=== PATIENT | female | born 1985 | race Caucasian/White ===

== ENCOUNTER → 2017-08-17 15:31 | Outpatient (CLI) | payer OTHER, SELFPAY ==
[2017-08-17 17:10] LABS: Hematocrit 35.9 % (37-47); Hemoglobin 12.1 g/dl (12.0-15.0); Mean Corp Hgb Conc 33.7 g/gl (32-36); Mean Corpuscular Hgb 31.2 pg (27.0-32.0); Mean Corpuscular Volume 92.5 fL (81-99); Mean Platelet Vol. 10.3 fl (6.2-12.0); Platelet Count 240 K/mm3 (150-450); RBC Distribution Width CV 12.5 % (11.6-14.6); RBC Distribution Width SD 41.4 fl (35.1-43.9); Red Blood Count 3.88 M/mm3 (4.2-5.4)
[2017-08-17 17:14] LABS: Scan Indicated on CBC? Y/N NO
[2017-08-17 17:35] LABS: Free T3 2.1 pg/mL (2.18-3.98); Glucose Challenge Gest 1H 50g 121 mg/dL (70-140); T4 Free Direct 0.79 ng/dL (0.76-1.46); Thyroid Stim Hormone (TSH) 0.86 uIU/mL (0.358-3.74)
== END ==
PROVIDERS: Visit Provider Obstetrics & Gynecology
DX: Z34.83 Encounter for supervision of other normal pregnancy, third trimester (principal); E03.9 Hypothyroidism, unspecified
CPT/HCPCS: 36415; 82950; 84439; 84443; 84481; 85027; 86850

== ENCOUNTER → 2017-10-05 16:06 | Outpatient (CLI) | payer OTHER, SELFPAY ==
[2017-10-05 18:48] LABS: Group B Strep DNA By PCR Negative (Negative); Internal Control PASS; Probe Check PASS; Specimen Processing Control PASS
== END ==
PROVIDERS: Visit Provider Obstetrics & Gynecology
DX: Z36.85 Encounter for antenatal screening for Streptococcus B (principal)
CPT/HCPCS: 87081; 87653

== ENCOUNTER 2017-10-15 21:00 | Outpatient (CLI) | payer OTHER, SELFPAY ==
[2017-10-15 22:03] VITALS: BMI 35.8
[2017-10-15 22:30] LABS: ROM Internal Control Test YES-OK TO RESULT pt. (Internal QC); ROM Patient Test Negative (Negative)
[2017-10-15 23:04] VITALS: BP 116/69; PULSE 78; RESP 18; TEMP 36.7; O2SAT 98
--- NOTE | 2017-10-16 08:32 | OB.TRI.NOTE ---
History of Present Illness Date of Service: 10/15/17 Was patient seen by the physician?: Yes Reason For Visit: R/O LABOR Date of Service: 10/15/17 Final DIMITRIS: 11/05/17 Gestational age: 37 Weeks and 0 Days History of Present Illness: 32 yo AB5 female at 37 + wk presents for evaluation with ? SROM and no UCs felt. BP sl high initially at 132/91 Some UCs earlier in day. Concerned and just wanted to be checked to be sure all OK Home Medications Medication Instructions Recorded Aspirin 81 mg PO DAILY 10/15/17 B12/Levomefolate Calcium/B-6 1 each PO DAILY 10/15/17 [Folbic Rf Tablet] Levothyroxine Sodium [Synthroid] 25 mcg PO DAILY 10/15/17 Vit No.87/Iron/FA/Dha 1 each PO DAILY 10/15/17 [Prenate Mini Softgel] Allergies No Known Allergies Allergy (Verified 10/15/17 22:05) Physical Exam Vitals: Vital Signs Temp Pulse Resp BP Pulse Ox 98.0 F 78 18 116/69 98 10/15/17 23:04 10/15/17 23:04 10/15/17 23:04 10/15/17 23:04 10/15/17 23:04 General: Alert, Oriented x3, Cooperative, No apparent distress Abdomen: Soft, Gravid Cervix Dilation (cm): 0.5 - ROM NEGATIVE Station: -2 Effacement (%): 0 NST - FHR Rate Baby A Baseline: 120-130s accels to 170s Variability:: Moderate Accelerations:: 15 x 15 Decelerations:: None NST Reactive:: Yes, Appropriate for gestational age FHR Category:: Category I Uterine Activity:: Rare UC noted Impression/Plan 37 wk False labor. ROM neg no reg UCs and cervix unfavorable. NST reactive Home. F/U in ofc as planned Return to hospital if inc s/sx of labor.
== END 2017-10-15 23:00 | disposition home or self-care (01) ==
LOC: WPOUT 21:12 → WP 21:13
PROVIDERS: Family Provider Family Medicine; PCP Family Medicine; Visit Provider Obstetrics & Gynecology
DX: O47.1 False labor at or after 37 completed weeks of gestation (principal); Z3A.37 37 weeks gestation of pregnancy
CPT/HCPCS: 59025; 59050; 84112; 99218; G0378

== ENCOUNTER → 2017-10-25 17:21 | Outpatient (CLI) | payer OTHER, SELFPAY ==
[2017-10-25 18:03] LABS: Hematocrit 35.4 % (37-47); Hemoglobin 12.2 g/dl (12.0-15.0); Mean Corp Hgb Conc 34.5 g/gl (32-36); Mean Corpuscular Hgb 31.5 pg (27.0-32.0); Mean Corpuscular Volume 91.5 fL (81-99); Mean Platelet Vol. 10.4 fl (6.2-12.0); Platelet Count 223 K/mm3 (150-450); RBC Distribution Width CV 12.6 % (11.6-14.6); Red Blood Count 3.87 M/mm3 (4.2-5.4); Scan Indicated on CBC? Y/N NO; White Blood Count 9.7 K/mm3 (4.4-11.0)
[2017-10-25 18:11] LABS: International Normalized Ratio 0.9; Partial Thromboplast Time 28.4 Seconds (24.1-36.2); Prothrombin Time (Protime)PT. 12.6 SECONDS (11.7-14.9)
[2017-10-25 18:17] LABS: AST(SGOT) 17 U/L (15-37); Alanine Aminotransfer ALT/SGPT 14 U/L (13-56); Albumin, Serum 2.9 g/dL (3.2-5.0); Alkaline Phosphatase 155 U/L (45-117); Anion Gap 10 (5-15); BUN 10 mg/dL (7-18); BUN/Creat Ratio 19.1 RATIO (10-20); Bilirubin, Direct 0.07 mg/dL (0.00-0.30); Calcium,Total 8.8 mg/dL (8.5-10.1); Chloride 105 mmol/L (98-107); Creatinine, Serum 0.52 mg/dL (0.55-1.02); EST Glomerular Filtration Rate 142 mL/min (>60); Est Glom Filt Rate - Afr Amer 172 mL/min (>60); Globulin 4.6 g/dL (2.2-4.2); Glucose 76 mg/dL (74-106); Potassium 3.9 mmol/L (3.5-5.1); Protein, Total 7.5 g/dL (6.4-8.2); Sodium Level 137 mmol/L (136-145); Uric Acid 3.9 mg/dL (2.6-6.0)
[2017-10-25 19:03] LABS: Microalbumin,Random Urine < 5.0 mg/L (NO RANGE EST.)
== END ==
PROVIDERS: Family Provider Family Medicine; PCP Family Medicine; Visit Provider Obstetrics & Gynecology
DX: O13.9 Gestational [pregnancy-induced] hypertension without significant proteinuria, unspecified trimester (principal); Z3A.00 Weeks of gestation of pregnancy not specified
CPT/HCPCS: 36415; 80048; 80076; 82043; 82570; 84550; 85027; 85610; 85730

== ENCOUNTER → 2017-10-27 14:00 | Outpatient (CLI) | payer OTHER, SELFPAY ==
[2017-10-27 14:24] LABS: 24 Hour Urine Protein 226.3 mg/24HR (<150 MG/24HR); 24HR. UA Prot. Total Volume 3100 mL; Urine Protein (24 Hour) 7.3 mg/dL (<11.9)
== END ==
PROVIDERS: Visit Provider Obstetrics & Gynecology
DX: O13.9 Gestational [pregnancy-induced] hypertension without significant proteinuria, unspecified trimester (principal); Z3A.00 Weeks of gestation of pregnancy not specified
CPT/HCPCS: 84156

== ENCOUNTER 2017-11-03 07:02 | Inpatient (IN) | payer OTHER, SELFPAY ==
[2017-11-03 07:30] VITALS: BMI 35.6
[2017-11-03] MEDS: Lactated Ringers 1,000 ML 50 ML IV ×2 (07:45→12:40)
[2017-11-03 08:03] LABS: Hematocrit 36.4 % (37-47); Hemoglobin 12.3 g/dl (12.0-15.0); Mean Corp Hgb Conc 33.8 g/gl (32-36); Mean Corpuscular Hgb 30.5 pg (27.0-32.0); Mean Corpuscular Volume 90.3 fL (81-99); Mean Platelet Vol. 10.4 fl (6.2-12.0); Platelet Count 210 K/mm3 (150-450); RBC Distribution Width CV 12.8 % (11.6-14.6); RBC Distribution Width SD 41.8 fl (35.1-43.9); Red Blood Count 4.03 M/mm3 (4.2-5.4); White Blood Count 8.9 K/mm3 (4.4-11.0)
[2017-11-03 08:04] LABS: Scan Indicated on CBC? Y/N NO
[2017-11-03] MEDS: Oxytocin 30 units/NS 500 ml 30 UNITS/500 ML IV.SOLN IV (09:09)
--- NOTE | 2017-11-03 12:31 | PCM.PN.OB ---
Subjective: Very uncomfortable with contractions --mostly back pains Objective: Afeb VSS FHR tracing Cat 1 - Physical Exam General: Alert, Oriented x3, Cooperative, No apparent distress Lungs: Clear to auscultation, Normal air movement Cardiovascular: Regular rate, Regular Rhythm Abdomen: Gravid, Appropriate for Gestational Age Extremities: No edema Skin: No rashes Neurological: Neuro grossly intact Psych/Mental Status: Normal Affect Comment: CE 2-3 cm/80%/-2 Weight: 200 lb 13.458 oz Body Mass Index (BMI) 35.6 Intake and Output for Last 24 Hours 11/01/17 11/02/17 11/03/17 23:59 23:59 23:59 Output Total 100 / 100 Balance -100 / -100 Laboratory Tests Past 24 Hrs 11/03/17 11/03/17 04:45 04:45 WBC 8.9 RBC 4.03 L Hgb 12.3 Hct 36.4 L MCV 90.3 MCH 30.5 MCHC 33.8 RDW 12.8 RDW Differential 41.8 Plt Count 210 MPV 10.4 Blood Type O NEGATIVE Antibody Screen NEGATIVE Medical Necessity - Tobacco Use Smoking Status: Never smoker Assessment/Plan Pitocin at 6 mu/min. AROM performed with clear fluid noted. IUPC placed. Epidural when anesthesia available.
[2017-11-03] MEDS: fentaNYL-bupivacaine (epidural) 100 ML BAG EPIDURAL (13:12)
--- NOTE | 2017-11-03 15:05 | PCM.PN.OB ---
Subjective: Much more comfortable with epidural in place. Objective: Afeb VSS FHR tracing Cat 1. - Physical Exam General: Alert, Oriented x3, Cooperative, No apparent distress Lungs: Clear to auscultation, Normal air movement Cardiovascular: Regular rate, Regular Rhythm Abdomen: Soft, Non Tender, Non-Distended, Gravid, Appropriate for Gestational Age Extremities: No edema Skin: No rashes Comment: CE 6/80/-2 Weight: 200 lb 13.458 oz Body Mass Index (BMI) 35.6 Intake and Output for Last 24 Hours 11/01/17 11/02/17 11/03/17 23:59 23:59 23:59 Output Total 100 / 100 Balance -100 / -100 Laboratory Tests Past 24 Hrs 11/03/17 11/03/17 04:45 04:45 WBC 8.9 RBC 4.03 L Hgb 12.3 Hct 36.4 L MCV 90.3 MCH 30.5 MCHC 33.8 RDW 12.8 RDW Differential 41.8 Plt Count 210 MPV 10.4 Blood Type O NEGATIVE Antibody Screen NEGATIVE Medical Necessity - Tobacco Use Smoking Status: Never smoker Assessment/Plan Progressing in labor. Adequate contractions by IUPC pressure measurements.
[2017-11-03] MEDS: Acetaminophen 325 MG Tablet PO (15:07)
[2017-11-03] MEDS: Oxytocin 30 units/NS 500 ml 30 UNITS/500 ML IV.SOLN 334 UNITS IV (17:17)
[2017-11-03] MEDS: Oxytocin 30 units/NS 500 ml 30 UNITS/500 ML IV.SOLN 167 UNITS IV (17:37)
--- NOTE | 2017-11-03 17:38 | PCM.OB.VAG ---
Vaginal Delivery Maternal Presentation: Medically Indicated Induction presented at 39w5d ega for induction of labor secondary to induced hypertension Method of Induction: Pitocin Medical Reason for Induction: Gestational Hypertension Amniotic Membrane Rupture Type: Artificial Rupture of Membrane time: 1215 Amniotic Fluid Description: Clear Final DIMITRIS: 11/05/17 Final DIMITRIS Source: US <20 weeks Gestational age: 39 Weeks and 5 Days Date of Procedure: 11/03/17 Pre-Operative Diagnosis: Labor Post-Operative Diagnosis: Same Surgery/ Procedure Performed: Spontaneous Vaginal Delivery Anesthesiologist: Shaggy Chambers Type of Anesthesia: Epidural Description of Procedure: Octavia presented at 2 cm dilated. Pitocin was started and over 8 hours progressed to FD. She then pushed for about an hour to deliver a live female without complication. After delivery the nose and mouth were suctioned and the baby dried and stimulated. There was an active jarrod within the first minute of life. Delayed cord clamping was employed. The cord was then clamped and cut. The baby was placed on mom's chest for skin to skin. Cord blood were collected secondary to mom's rh negative status. The placenta was delivered spontaneously intact with an eccentrically located 3 vessel cord. The uterus contracted well after delivery of the placenta. Inspection revealed an intact cervix and upper vagina. A small periurethral tear was repaired with 3-0 Rapide suture. A small posterior vagina abrasion was repaired with the same suture. Presentation: Vertex Placental Delivery Description: Spontaneous Placenta Disposition: [facility] Percentage of Placenta Abruption: 0 Cord Vessel Description: 3 Vessels Cord Entanglement: None Drain: Garcia to straight drain Estimated Blood Loss: 300cc A gender: Female (1 minute): 8 (5 minute): 9 Episiotomy Description: None Laceration: Periurethral Extnsion/lac, 1st degree Medications given after delivery: IV Pitocin Complications: None
--- NOTE | 2017-11-03 17:49 | DCINST_ITS ---
Discharge Diet: No Restrictions Discharge Activity: Return to Normal Activity, May Drive, May Shower Return to work on:: 01/03/18 May shower in (days): 0 May resume sexual activity in: 4-6 weeks Call your doctor if your incision/area has: Sudden Increased Bleeding, Increased Pain/ Swelling, Foul Smelling Discharge Call your doctor if you observe: Fever of 101 or Higher, Inability to urinate, Inability to have a bowel movement, Using more than one pad per hour, Shortness of breath, Chest pain, Calf discomfort, Uncontrolled pain Cleanse incision/area with: Soap & Water Additional Instructions: If you experience any of the following, contact your healthcare provider. * Bleeding that soaks a pad every hour for 2 hours * Fever 100.4 or higher * Unrelieved incision or abdominal pain * Swelling, redness, discharge or bleeding from your incision or episiotomy site * Your incision begins to separate * Problems urinating (including inability to urinate or burning while urinating) . * Visual changes * Severe headache * Flu-like symptoms * Pain or redness in one of both of your breasts * Pain, warmth, tenderness or swelling in your legs, especially the calf area * Frequent nausea and vomiting * Symptoms of depression or anxiety If you experience any of the following, call 911 or go to the nearest Emergency Room. * Chest pain * Problems breathing * Seizure activity * Partial or complete paralysis of a body part, slurred speech, weakness or drooping of the face, or a sudden inability to walk or hold your balance Allergies/Adverse Reactions: Allergies No Known Allergies Allergy (Verified 11/03/17 07:32) reactions to nickel and bancaids Medications to take at Discharge B12/Levomefolate Calcium/B-6 [Folbic Rf Tablet] 1 each PO DAILY 10/15/17 Levothyroxine Sodium [Synthroid] 25 mcg PO DAILY 10/15/17 Vit No.87/Iron/FA/Dha [Prenate Mini Softgel] 1 each PO DAILY 10/15/17 Ibuprofen [Ibu] 600 mg PO Q6H PRN PRN #30 tab 11/03/17 The following prescriptions were given: Ibuprofen [Ibu] 600 mg PO Q6H PRN PRN #30 tab PRN Reason: pain or cramping Please Follow Up With: Michoacano Collier MD When: 6 weeks Primary Care Physician: Mich Gandhi [Primary Care Provider] - Proposed Discharge Date: 11/05/17
[2017-11-03 19:38] VITALS: BP 110/65; PULSE 102; RESP 16; TEMP 37.5
--- NOTE | 2017-11-03 20:31 | NURSING ---
1937-post vaginal abrasion
--- NOTE | 2017-11-03 20:34 | NURSING ---
1938-pt remains a little numb still from epidural, will remove catheter when feeling completely back .
[2017-11-04] MEDS: Ibuprofen 600 MG Tablet PO ×4 (00:24→21:46)
[2017-11-04 03:00] VITALS: BP 133/81; PULSE 89; RESP 20; TEMP 37.3
[2017-11-04] MEDS: Levothyroxine 25 MCG TABLET PO (06:42)
[2017-11-04 07:02] LABS: Hematocrit 34.4 % (37-47); Hemoglobin 11.6 g/dl (12.0-15.0); Mean Corp Hgb Conc 33.7 g/gl (32-36); Mean Corpuscular Hgb 30.7 pg (27.0-32.0); Mean Platelet Vol. 10.2 fl (6.2-12.0); Platelet Count 185 K/mm3 (150-450); RBC Distribution Width CV 12.9 % (11.6-14.6); RBC Distribution Width SD 42.5 fl (35.1-43.9); Red Blood Count 3.78 M/mm3 (4.2-5.4); White Blood Count 14.7 K/mm3 (4.4-11.0)
[2017-11-04 07:33] LABS: Scan Indicated on CBC? Y/N NO
[2017-11-04 08:00] VITALS: BP 138/96; PULSE 87; RESP 16; TEMP 37.1
--- NOTE | 2017-11-04 08:10 | PCM.PN.OB ---
Subjective: Doing well on PP day#1. No specific complaints. Bleeding appropriate. Breast feeding. Objective: Afeb VSS Hgb stable - Physical Exam General: Alert, Oriented x3, Cooperative, No apparent distress Lungs: Clear to auscultation, Normal air movement Cardiovascular: Regular rate, Regular Rhythm Abdomen: Soft, Non Tender, Non-Distended, - - Fundus firm nontender Extremities: No edema Skin: No rashes Neurological: Neuro grossly intact Psych/Mental Status: Normal Affect Comment: Lochia light Vital Signs Temp Pulse Resp BP 99.1 F 89 20 H 133/81 H 11/04/17 03:00 11/04/17 03:00 11/04/17 03:00 11/04/17 03:00 Weight: 200 lb 13.458 oz Body Mass Index (BMI) 35.6 Intake and Output for Last 24 Hours 11/02/17 11/03/17 11/04/17 23:59 23:59 23:59 Intake Total 2664 / 2664 400 / 400 Output Total 1250 / 1250 350 / 350 Balance 1414 / 1414 50 / 50 Laboratory Tests Past 24 Hrs 11/03/17 11/03/17 11/04/17 04:45 21:30 06:45 WBC 14.7 H RBC 3.78 L Hgb 11.6 L Hct 34.4 L MCV 91.0 MCH 30.7 MCHC 33.7 RDW 12.9 RDW Differential 42.5 Plt Count 185 MPV 10.2 Blood Type O NEGATIVE Antibody Screen NEGATIVE Screen NEGATIVE Baby's Blood Type A POSITIVE Baby's SERGIO POSITIVE Medical Necessity - Tobacco Use Smoking Status: Never smoker Assessment/Plan Doing well on PP day#1. Rhogam given. Continue routine PP care.
[2017-11-04] MEDS: Prenatal Vits Tablet 1 TABLET PO (11:27)
[2017-11-04 13:00] VITALS: BP 131/84; PULSE 88; RESP 16; TEMP 36.8
[2017-11-04 17:00] VITALS: BP 131/90; PULSE 93; RESP 16; TEMP 36.9
[2017-11-04 20:15] VITALS: BP 127/91; PULSE 94; RESP 18; TEMP 36.9; O2SAT 97
[2017-11-05 02:55] VITALS: BP 128/70; PULSE 95; RESP 18; TEMP 36.4; O2SAT 97
[2017-11-05] MEDS: Ibuprofen 600 MG Tablet PO ×2 (04:12→12:30)
[2017-11-05] MEDS: Levothyroxine 25 MCG TABLET PO (07:00)
--- NOTE | 2017-11-05 08:13 | PCM.PN.OB ---
Subjective: Doing well. No complaints. Breast feeding. Bleeding light. Objective: Afeb VSS - Physical Exam General: Alert, Oriented x3, Cooperative, No apparent distress Lungs: Clear to auscultation, Normal air movement Cardiovascular: Regular rate, Regular Rhythm Abdomen: Soft, Non Tender, Non-Distended, - - Fundus firm nontender Extremities: No edema Neurological: Neuro grossly intact Psych/Mental Status: Normal Affect Comment: Lochia light Vital Signs Temp Pulse Resp BP Pulse Ox 97.5 F L 95 18 128/70 H 97 11/05/17 02:55 11/05/17 02:55 11/05/17 02:55 11/05/17 02:55 11/05/17 02:55 Oxygen Delivery Method Room Air Weight: 200 lb 13.458 oz Body Mass Index (BMI) 35.6 Intake and Output for Last 24 Hours 11/03/17 11/04/17 11/05/17 23:59 23:59 23:59 Intake Total 2664 / 2664 400 / 400 Output Total 1250 / 1250 350 / 350 Balance 1414 / 1414 50 / 50 Medical Necessity - Tobacco Use Smoking Status: Never smoker Assessment/Plan Doing well on PP day#2. Cleared for discharge home today. Home going instructions given and instructed.
--- NOTE | 2017-11-05 08:23 | DS.PCM_ITS ---
Discharge Date and Diagnosis Date of Admission: 11/10/17 Date of Discharge: 11/05/17 - Primary Discharge Diagnosis S/P Hospital Course and Treatment Consultations 11/03/17 07:10 Consult: Anesthesia Routine Comment: Reason For Exam: labor Operations: None Procedures: - - Epidural, pitocin induction, Summary of Care Provided: The patient is a 32 year old F [admitted for induction of labor at 39w[address]d [facility] secondary to induced hypertension. Pitocin induction was performed with resultant uncomplicated vaginal delivery. Post course unremarkable. Discharged home on PP day#2.] Discharge Diet: No Restrictions Discharge Activity: Return to Normal Activity, May Drive, May Shower Return to work on:: 01/03/18 May shower in (days): 0 May resume sexual activity in: 4-6 weeks Call your doctor if your incision/area has: Sudden Increased Bleeding, Increased Pain/ Swelling, Foul Smelling Discharge Call your doctor if you observe: Fever of 101 or Higher, Inability to urinate, Inability to have a bowel movement, Using more than one pad per hour, Shortness of breath, Chest pain, Calf discomfort, Uncontrolled pain Cleanse incision/area with: Soap & Water Home Medications: Medications to take at Discharge B12/Levomefolate Calcium/B-6 [Folbic Rf Tablet] 1 each PO DAILY 10/15/17 Levothyroxine Sodium [Synthroid] 25 mcg PO DAILY 10/15/17 Vit No.87/Iron/FA/Dha [Prenate Mini Softgel] 1 each PO DAILY 10/15/17 Ibuprofen [Ibu] 600 mg PO Q6H PRN PRN #30 tab 11/03/17 Following Prescrptions Were Given to Patient: Ibuprofen [Ibu] 600 mg PO Q6H PRN PRN #30 tab PRN Reason: pain or cramping Primary Care Physician: Mich Gandhi [Primary Care Provider] - Please Follow Up With: Michoacano Collier MD When: 6 weeks Disposition: Home Minutes spent on discharge:: 15 Patient Condition:: Good Medical Necessity - Tobacco Use Smoking Status: Never smoker Meaningful Use Info Meaningful Use Diagnoses (Choose all that apply): None applicable
[2017-11-05 08:31] VITALS: BP 134/93; PULSE 96; RESP 16; TEMP 36.9; O2SAT 97
[2017-11-05 10:55] VITALS: BP 134/92; PULSE 87; RESP 16; TEMP 36.8; O2SAT 98
[2017-11-05] MEDS: Prenatal Vits Tablet 1 TABLET PO (12:30)
[2017-11-05 12:45] VITALS: BP 134/92; PULSE 84; RESP 16; TEMP 36.8; O2SAT 98
== END 2017-11-05 13:00 | disposition home or self-care (01) | DRG 775 ==
PROVIDERS: Admitting Provider Obstetrics & Gynecology; Family Provider Family Medicine; PCP Family Medicine; Visit Provider Obstetrics & Gynecology
DX: O13.4 Gestational [pregnancy-induced] hypertension without significant proteinuria, complicating childbirth (principal); Z37.0 Single live birth; Z3A.39 39 weeks gestation of pregnancy; O71.82 Other specified trauma to perineum and vulva
CPT/HCPCS: 59025; 59050; 85027; 85461; 86850; 86900; 90384; 99218; J7120; G0378; J2790

== ENCOUNTER 2017-11-07 14:05 | Outpatient (CLI) | payer OTHER, SELFPAY | END 2017-11-07 15:35 | disposition home or self-care (01) | LOC: WPOUT 14:11 → WP 14:11 | PROVIDERS: Family Provider Family Medicine; PCP Family Medicine; Visit Provider Obstetrics & Gynecology | DX: Z39.1 Encounter for care and examination of lactating mother (principal) | CPT/HCPCS: 96152 ==

== ENCOUNTER → 2018-05-16 14:28 | Outpatient (CLI) | payer OTHER, SELFPAY ==
[2018-05-16 17:33] LABS: Free T3 3.7 pg/mL (2.18-3.98); T4 Free Direct 1.38 ng/dL (0.76-1.46); Thyroid Stim Hormone (TSH) < 0.01 uIU/mL (0.358-3.74)
[2018-05-22 16:47] LABS: HPV HC, High Risk Negative (Negative)
== END ==
PROVIDERS: Family Provider Family Medicine; PCP Family Medicine; Visit Provider Obstetrics & Gynecology
DX: E03.9 Hypothyroidism, unspecified (principal); Z12.4 Encounter for screening for malignant neoplasm of cervix
CPT/HCPCS: 36415; 84439; 84443; 84481; 87624; 88175; G0145

== ENCOUNTER → 2019-01-22 | Outpatient (CLI) | payer BC, SELFPAY ==
[2019-01-22 18:25] LABS: hCG Titer Quant., Serum 92 mIU/mL (1-3)
== END | disposition home or self-care (01) ==
PROVIDERS: Visit Provider Obstetrics & Gynecology
DX: N91.2 Amenorrhea, unspecified (principal)
CPT/HCPCS: 36415; 84702

== ENCOUNTER → 2019-01-24 | Outpatient (CLI) | payer BC, SELFPAY ==
[2019-01-24 18:24] LABS: hCG Titer Quant., Serum 328 mIU/mL (1-3)
== END | disposition home or self-care (01) ==
LOC: WOBLAB 16:37
PROVIDERS: Visit Provider Obstetrics & Gynecology
DX: N91.2 Amenorrhea, unspecified (principal)
CPT/HCPCS: 36415; 84702

== ENCOUNTER → 2019-02-22 | Outpatient (CLI) | payer BC, SELFPAY ==
[2019-02-22 20:09] LABS: Chlamydia Trachomatis by PCR Negative (Negative); Neisserai gonorrhoeae by PCR Negative (Negative); Probe Check PASS; Sample Adequacy Control PASS; Specimen Processing Control PASS
== END | disposition home or self-care (01) ==
LOC: LABSPEC 17:31
PROVIDERS: Visit Provider Obstetrics & Gynecology
DX: Z11.3 Encounter for screening for infections with a predominantly sexual mode of transmission (principal)
CPT/HCPCS: 87491; 87591

== ENCOUNTER → 2019-03-15 15:21 | Outpatient (CLI) | payer BC, SELFPAY ==
[2019-03-15 16:25] LABS: Absolute Lymphocyte Count 2.53 X10^3/uL (0.83-4.51); Absolute Neutrophil Count 6.6 X10^3/uL (2.0-7.7); Basophil# 0.03 X10^3/uL; Basophil% 0.3 % (0-1); Eosinophil# 0.08 X10^3/uL; Eosinophils% 0.8 % (0-5); Hematocrit 39.8 % (37-47); Hemoglobin 13.4 g/dL (12.0-15.0); Lymphocyte # 2.53 X10^3/ul (4.0); Mean Corp Hgb Conc 33.7 g/dL (32-36); Mean Corpuscular Hgb 30.1 pg (27.0-32.0); Mean Corpuscular Volume 89.4 fL (81-99); Mean Platelet Vol. 9.8 fl (6.2-12.0); Monocyte# 0.47 X10^3/uL; Monocyte% 4.8 % (0-10); NRBC Flagged by Analyzer 0 % (0-5); Neutrophil % 67.8 % (47-70); Platelet Count 260 K/mm3 (150-450); RBC Distribution Width CV 11.9 % (11.6-14.6); RBC Distribution Width SD 38.7 fl (35.1-43.9); Red Blood Count 4.45 M/mm3 (4.2-5.4); White Blood Count 9.7 K/mm3 (4.4-11.0)
[2019-03-15 16:35] LABS: Color, Urine Yellow (Yellow); Glucose, Dipstick Normal (Normal); Ketone-Dipstick Negative (Negative); Leukocyte Esterase-Dipstick Negative /ul (Negative); Nitrite-Dipstick Negative (Negative); Occult Blood-Urine Negative /ul (Negative); Protein-Dipstick Negative (Negative); Specific Gravity, Urine 1.015 (1.002-1.030); Urine Bilirubin Dipstick Negative (Negative); Urine Clarity Clear (Clear); Urine Urobilinogen Normal (Normal)
[2019-03-15 16:48] LABS: Amphetamine Urine VISTA NEGATIVE (<1000 ng/mL); Barbiturate Urine VISTA NEGATIVE (< 200 ng/mL); Benzodiazepine Urine VISTA NEGATIVE (< 200 ng/mL); Cocaine Urine VISTA NEGATIVE (< 300 ng/mL); Ecstacy Urine VISTA NEGATIVE (< 500 ng/mL); Methadone Urine VISTA NEGATIVE (< 300 ng/mL); PCP Urine VISTA NEGATIVE (< 25 ng/mL); THC Urine VISTA NEGATIVE (< 50 ng/mL); Vista UDS pH Range 6
[2019-03-19 13:54] LABS: HIV - WCH Non-Reactive (Nonreactive); Hepatitis B Surface Antigen Non-Reactive (Nonreactive); Hepatitis C Antibody Non-Reactive (Nonreactive); Rubella IgG > 500.0 IU/mL
[2019-03-22 01:38] LABS: Prenatal RPR NONREACTIVE (NONREACTIVE)
== END ==
PROVIDERS: Visit Provider Obstetrics & Gynecology
DX: Z34.81 Encounter for supervision of other normal pregnancy, first trimester (principal)
CPT/HCPCS: 36415; 80307; 81002; 84443; 85025; 86703; 86762; 86803; 87340

== ENCOUNTER → 2019-07-04 13:05 | Outpatient (CLI) | payer BC, SELFPAY ==
[2019-07-04 13:48] LABS: Hematocrit 36.7 % (37-47); Hemoglobin 12.5 g/dL (12.0-15.0); Mean Corp Hgb Conc 34.1 g/dL (32-36); Mean Corpuscular Hgb 31.2 pg (27.0-32.0); Mean Corpuscular Volume 91.5 fL (81-99); Mean Platelet Vol. 9.6 fl (6.2-12.0); Platelet Count 247 K/mm3 (150-450); RBC Distribution Width CV 12.5 % (11.6-14.6); RBC Distribution Width SD 41.3 fl (35.1-43.9); Red Blood Count 4.01 M/mm3 (4.2-5.4); White Blood Count 8.3 K/mm3 (4.4-11.0)
[2019-07-04 13:52] LABS: Glucose Challenge Gest 1H 50g 129 mg/dL (70-140)
[2019-07-04 14:25] LABS: ALB/GLOB Ratio 0.6 RATIO (0.9-2.4); AST(SGOT) 12 U/L (15-37); Alanine Aminotransfer ALT/SGPT 15 U/L (13-56); Albumin, Serum 2.9 g/dL (3.2-5.0); Alkaline Phosphatase 79 U/L (45-117); Anion Gap 4 (5-15); BUN 7 mg/dL (7-18); Calcium,Total 8.6 mg/dL (8.5-10.1); Chloride 105 mmol/L (98-107); Creatinine, Serum 0.64 mg/dL (0.55-1.02); EST Glomerular Filtration Rate 112 mL/min (>60); Est Glom Filt Rate - Afr Amer 136 mL/min (>60); Globulin 4.5 g/dL (2.2-4.2); Potassium 3.5 mmol/L (3.5-5.1); Protein, Total 7.4 g/dL (6.4-8.2); Sodium Level 137 mmol/L (136-145)
[2019-07-04 17:17] LABS: Protein:Creat Ratio 269 mg/g CRE (0-200)
[2019-07-04 18:54] LABS: Glucose 129 mg/dL (74-106)
== END ==
PROVIDERS: Visit Provider Obstetrics & Gynecology
DX: Z34.83 Encounter for supervision of other normal pregnancy, third trimester (principal)
CPT/HCPCS: 36415; 80053; 82570; 82950; 84156; 84550; 85027; 86850

== ENCOUNTER → 2019-09-05 | Outpatient (CLI) | payer BC, SELFPAY | END | disposition home or self-care (01) | LOC: LABSPEC 15:11 | PROVIDERS: Visit Provider Obstetrics & Gynecology | DX: Z36.85 Encounter for antenatal screening for Streptococcus B (principal) | CPT/HCPCS: 87081 ==

== ENCOUNTER 2019-09-16 10:30 | Outpatient (CLI) | payer BC, SELFPAY ==
[2019-09-16 10:52] VITALS: BMI 37.6
[2019-09-16 11:02] VITALS: BP 141/102; PULSE 90; TEMP 36.9
[2019-09-16 11:04] VITALS: BP 145/94; PULSE 85; PULSE 86; O2SAT 98
[2019-09-16 11:20] VITALS: BP 124/83; PULSE 86
[2019-09-16 12:30] VITALS: BP 136/84; PULSE 93
[2019-09-16 13:51] VITALS: BP 119/82; PULSE 91; TEMP 36.9
[2019-09-17 08:57] LABS: Kleihauer-Betke Negative
--- NOTE | 2019-09-30 12:31 | OB.TRI.HP_ITS ---
History of Present Illness Date of Service: 09/16/19 Was patient seen by the physician?: No Reason For Visit: FALL Date of Service: 09/16/19 Final DIMITRIS: 09/26/19 Final DIMITRIS Source: US <20 weeks Gestational age: 38 Weeks and 4 Days History of Present Illness: 38+ week intrauterine presents after falling at home. Patient denies any bleeding. Good movement noted. Allergies No Known Allergies Allergy (Verified 09/19/19 13:49) reactions to nickel and bancaids Laboratory Studies: Laboratory Tests 09/16/19 09/16/19 Range/Units 13:00 13:00 Kleihauer-Betke F Hgb Negative Blood Type O NEGATIVE Physical Exam Vitals: Vital Signs Temp Pulse BP Pulse Ox 98.5 F 91 119/82 H 98 09/16/19 13:51 09/16/19 13:51 09/16/19 13:51 09/16/19 11:04 NST - FHR Rate Baby A NST Reactive:: Yes Uterine Activity:: Minimal irritability noted. Impression/Plan 38+ week intrauterine status post fall at home. Will monitor for several hours. After monitoring reactive heart tones noted. Kleihauer- Betke test sent. Patient given RhoGam. Return with decreased movement or vaginal bleeding.
== END 2019-09-16 14:55 | disposition home or self-care (01) ==
LOC: WPOUT 10:37 → OBT 10:38
PROVIDERS: Referring Provider Obstetrics & Gynecology; Visit Provider Obstetrics & Gynecology
DX: Z04.3 Encounter for examination and observation following other accident (principal)
CPT/HCPCS: 36415; 59025; 59050; 85460; 86900; 86901; 90384; 96372; 99218; G0378; J2790

== ENCOUNTER 2019-09-19 06:57 | Inpatient (IN) | payer BC, SELFPAY ==
[2019-09-19] VITALS (52 sets, daily range): BP systolic 111–183; BP diastolic 72–101; PULSE 83–112; TEMP 36.1–36.9; O2SAT 98–100; BMI 38.0
[2019-09-19] MEDS: Lactated Ringers 1,000 ML 50 ML IV (07:30)
[2019-09-19 07:53] LABS: Absolute Lymphocyte Count 2.01 X10^3/uL (0.83-4.51); Absolute Neutrophil Count 4.5 X10^3/uL (2.0-7.7); Basophil# 0.02 X10^3/uL; Basophil% 0.3 % (0-1); Eosinophils% 1.4 % (0-5); Hematocrit 34.9 % (37-47); Hemoglobin 11.8 g/dL (12.0-15.0); Lymphocyte # 2.01 X10^3/ul (4.0); Lymphocyte % 27.8 % (19-41); Mean Corp Hgb Conc 33.8 g/dL (32-36); Mean Corpuscular Hgb 30.4 pg (27.0-32.0); Mean Corpuscular Volume 89.9 fL (81-99); Mean Platelet Vol. 10.5 fl (6.2-12.0); Monocyte# 0.54 X10^3/uL; Monocyte% 7.5 % (0-10); NRBC Flagged by Analyzer 0 % (0-5); Neutrophil # 4.52 X10^3/uL (2.7-7.7); Neutrophil % 62.6 % (47-70); Platelet Count 202 K/mm3 (150-450); RBC Distribution Width CV 12.3 % (11.6-14.6); RBC Distribution Width SD 40.1 fl (35.1-43.9); Red Blood Count 3.88 M/mm3 (4.2-5.4); White Blood Count 7.2 K/mm3 (4.4-11.0)
[2019-09-19] MEDS: Oxytocin 30 units/NS 500 ml 30 UNITS/500 ML IV.SOLN IV (08:00)
--- NOTE | 2019-09-19 08:51 | HP.PCM_ITS ---
- Problem List (1) 39 weeks gestation of Status: Acute History Date of Admission: 09/19/19 Final DIMITRIS: 09/26/19 Final DIMITRIS Source: US <20 weeks Gestational age: 39 Weeks and 0 Days History of this : This is a 34 year-old, G [7], P [1], at 39 weeks gestational age. Allergies No Known Allergies Allergy (Verified 11/03/17 07:32) reactions to nickel and bancaids Home Medications: Home Medications Vit 87/Iron/Folic/Dha [Prenate Mini Softgel] 1 each PO DAILY 10/15/17 Aspirin [Aspir 81] 81 mg PO DAILY 09/16/19 Smoking Status: Never smoker Alcohol: None Number of Fetus(es): 1 NST - FHR Rate Baby A Baseline: 145 Variability:: Moderate Accelerations:: 15 x 15 Decelerations:: None NST Reactive:: Yes FHR Category:: Category I Uterine Activity:: Q2-3m History Past Pregnancies: PRIOR DELIVERY HISTORY DEL DATE GEST LAB WT LB WT OZ TYPE ANES LABOR TX 11 November 10 40 18 7 11 Vag Epidural No 21 Phil 17 4 0 0 0 Vag None No 21 Oct 16 6 0 0 0 Vag None No Feb 16 5 0 0 0 Vag None No 30 Mar 17 9 0 0 0 Vag None No 30 October 16 5 0 0 0 Vag None No Labs: Mom's Labs & Results 09/19/19 09/19/19 07:40 07:40 WBC 7.2 RBC 3.88 L Hgb 11.8 L Hct 34.9 L MCV 89.9 MCH 30.4 MCHC 33.8 RDW Std Deviation 40.1 RDW Coeff of Berny 12.3 Plt Count 202 MPV 10.5 Immature Gran % (Auto) 0.400 Neut % (Auto) 62.6 Lymph % (Auto) 27.8 [place] % (Auto) 7.5 Eos % (Auto) 1.4 Baso % (Auto) 0.3 Absolute Neuts (auto) 4.5 Absolute Lymphs (auto) 2.01 Nucleated RBC % 0 Blood Type Pending Antibody Screen Pending Labs HIV/AIDS Non-Reactive Expected Infant Delivery Method: Spontaneous Vaginal Number of Visits: 15 Review of Systems Constitutional: Denies: Chills, Fever, Weight Change HEENT: Denies: Head Aches, Sinus Congestion, Sinus Drainage Cardiovascular: Denies: Chest Pain, Palpitations Respiratory: Denies: Cough, Shortness of breath at rest, Sputum production Gastrointestinal: Denies: Abdominal Pain, Nausea, Vomiting Genitourinary: Denies: Dysuria Musculoskeletal: Denies: Joint Pain, Joint Tenderness Skin: Denies: Rash, Wounds Neurological: Denies: Numbness, Tingling, Focal weakness Psychiatric: Denies: Anxiety, Depression, Homicidal Ideations, Suicidal Ideations Hematologic/ Lymphatic: Denies: Easy Bruising, Easy Bleeding Physical Exam Vitals: Vital Signs Temp Pulse BP 98.3 F 89 148/95 H 09/19/19 08:00 09/19/19 08:27 09/19/19 08:27 General: Alert, Oriented x3, No apparent distress HEENT: Atraumatic, Normocephalic. Negative for: Thyromegaly, Lymphadenopathy Cardiovascular: Regular rate, Regular Rhythm Lungs: Clear to auscultation Abdomen: Bowel Sounds Present, Gravid Neurological: Deep Tendon Reflexes 2+/4 and Symmetrical, Neuro grossly intact [employer]IST: Normal external genitalia. Negative for: Vulvar lesions Estimated gestational size: Appropriate for gestational size Presentation: Cephalic Cervix Dilation (cm): 1 Station: -1 Effacement (%): 80 Assessment/Plan All Active Problems 39 weeks gestation of (Acute) A: This is a 34 year-old, G [7], P [1], at 39 weeks gestational age. IOL for AMA Elevated BPs, admits anxiety, but will send pre-e panel NST Reactive, Category I UC 2-3m P: IOL: Pitocin with AROM when possible Continuous FHR monitoring Expect
[2019-09-19 09:35] LABS: International Normalized Ratio 0.9; Partial Thromboplast Time 29.1 Seconds (24.1-36.2); Prothrombin Time (Protime)PT. 12.2 SECONDS (11.7-14.9)
[2019-09-19 09:36] LABS: Fibrinogen 579 mg/dl (203-444)
[2019-09-19 09:47] LABS: Anion Gap 10 (5-15); BUN 12 mg/dL (7-18); BUN/Creat Ratio 18.2 RATIO (10-20); Calcium,Total 8.6 mg/dL (8.5-10.1); Chloride 108 mmol/L (98-107); Creatinine, Serum 0.66 mg/dL (0.55-1.02); EST Glomerular Filtration Rate 107 mL/min (>60); Est Glom Filt Rate - Afr Amer 130 mL/min (>60); Estimated Creatinine Clearance 97.48 ml/min; Glucose 76 mg/dL (74-106); Potassium 3.9 mmol/L (3.5-5.1); Sodium Level 140 mmol/L (136-145)
[2019-09-19] MEDS: Lactated Ringers 500 ML 999 ML IV (15:35)
[2019-09-19] MEDS: Lactated Ringers 1,000 ML 200 ML IV ×2 (15:59→20:59)
[2019-09-19] MEDS: fentaNYL-bupivacaine (epidural) 100 ML BAG EPIDURAL ×2 (16:38→20:51)
--- NOTE | 2019-09-19 18:28 | PCM.PN.OB ---
Patient Problems: Active and Suspected Problems 39 weeks gestation of (Acute) Subjective: Feeling comfortable with epidural, no pain. Wants to take a nap. Objective: VSS. UC 2-4min. SVE 2/75/-1 soft anterior. FHR baseline 130, + accels, -decels, moderate variability - Physical Exam Vitals/I&O's: Vital Signs Temp Pulse BP Pulse Ox 98.3 F 102 H 123/82 H 100 09/19/19 18:08 09/19/19 18:08 09/19/19 17:54 09/19/19 18:08 Weight: 97.522 kg Body Mass Index (BMI) 38.0 Intake and Output for Last 24 Hours 09/17/19 09/18/19 09/19/19 23:59 23:59 23:59 Intake Total 1818.33 / 1818.33 Output Total 1200 / 1200 Balance 618.33 / 618.33 General: Alert, Oriented x3, Cooperative HEENT: Atraumatic, PERRLA, EOMI, Normocephalic Neck: Supple, No JVD, Negative Carotid Bruits Lungs: Clear to auscultation, Normal air movement Cardiovascular: Regular rate, No murmurs Abdomen: Bowel Sounds Present, Soft, Non Tender Extremities: No edema, Capillary Refill Less than 3 Seconds Skin: No rashes, No breakdown Musculoskeletal: No Tenderness to Palpation of Joints or Extremities Neurological: Cranial nerves II-XII grossly intact Psych/Mental Status: Normal Affect, Appropriate Laboratory Results 09/19/19 07:30: PT 12.2, INR 0.9, APTT 29.1, Fibrinogen 579 H 09/19/19 07:30: Sodium 140, Potassium 3.9, Chloride 108 H, Carbon Dioxide 22.0, Anion Gap 10, BUN 12, Creatinine 0.66, Estim Creat Clear Calc 97.48, Est GFR (MDRD) Af Amer 130, Est GFR (MDRD) Non-Af 107, BUN/Creatinine Ratio 18.2, Glucose 76, Calcium 8.6 09/19/19 07:40: WBC 7.2, RBC 3.88 L, Hgb 11.8 L, Hct 34.9 L, MCV 89.9, MCH 30.4, MCHC 33.8, RDW Std Deviation 40.1, RDW Coeff of Berny 12.3, Plt Count 202, MPV 10.5, Immature Gran % (Auto) 0.400, Neut % (Auto) 62.6, Lymph % (Auto) 27.8, Citrus % (Auto) 7.5, Eos % (Auto) 1.4, Baso % (Auto) 0.3, Absolute Neuts (auto) 4.5, Absolute Lymphs (auto) 2.01, Nucleated RBC % 0 09/19/19 07:40: Blood Type O NEGATIVE, Antibody Screen TNP 09/19/19 07:40: Antibody Screen NEGATIVE Current Medications Acetaminophen (Tylenol) 325 - 650 mg PO Q4H PRN PRN PRN Reason: Pain Score 1-3/10 Al Hydroxide/Mg Hydroxide (Mylanta Ii) 15 - 30 ml PO Q4H PRN PRN PRN Reason: INDIGESTION Citric Acid/Sodium Citrate (Bicitra) 30 ml PO X1 PRN PRN Reason: Section Ephedrine Sulfate () 10 mg IV Q10M PRN PRN Reason: hypotension Ephedrine Sulfate () 10 mg IM Q30M PRN PRN Reason: hypotension Fentanyl Citrate (Sublimaze (100mcg Ampule)) 25 - 50 mcg IV Q2H PRN PRN PRN Reason: Pain Score 4-10/10 Fentanyl/Bupivacaine/Sodium Chlor () 0 ml EPIDURAL UD [facility]; Protocol Last Admin: 09/19/19 16:38 Dose: 100 ml Documented by: Lactated Ringer's () 500 mls @ 999 mls/hr IV .Q31M PRN PRN Reason: Epidural Last Infusion: 09/19/19 16:05 Dose: Infused Documented by: Lactated Ringer's () 500 mls @ 999 mls/hr IV .Q31M PRN PRN Reason: Corrective Measures Lactated Ringer's () 1,000 mls @ 50 mls/hr IV .Q20H [facility] Last Admin: 09/19/19 15:59 Dose: 200 mls/hr Documented by: Oxytocin/Sodium Chloride () 30 units in 500 mls @ 2 mls/hr IV .Q250H [facility] Last Infusion: 09/19/19 11:23 Dose: 10 mls/hr Documented by: Naloxone HCl 4 mg/ Dextrose 504 mls @ 0 mls/hr IV .Q0M PRN; Protocol PRN Reason: To maintain Resp. rate >10 Nalbuphine HCl (Nubain) 5 mg IV Q3H PRN PRN PRN Reason: ITCHING Naloxone HCl (Narcan) 0.02 mg IV Q1M PRN PRN Reason: RR< 10 AND PT UNRESPONSIVE Ondansetron HCl (Zofran) 4 mg IV Q4H PRN PRN PRN Reason: NAUSEA Prochlorperazine Edisylate (Compazine Iv) 10 mg IV Q6H PRN PRN PRN Reason: NAUSEA Sodium Chloride () 10 - 40 ml IV X1 PRN PRN Reason: SALINE FLUSH Medical Necessity - Tobacco Use Smoking Status: Never smoker Assessment/Plan All Active Problems 39 weeks gestation of (Acute) A: Pitocin at 10u SVE slightly changed to 2cm AROM with clear fluid NSt reactive Category I P: Continue IOL with Pitocin per tolerated SVE in 4-6 hours or as needed Expect
[2019-09-19] MEDS: Oxytocin 30 units/NS 500 ml 30 UNITS/500 ML IV.SOLN 334 UNITS IV (23:44)
[2019-09-20] VITALS (27 sets, daily range): BP systolic 129–150; BP diastolic 74–93; PULSE 81–96; RESP 14–18; TEMP 35.9–37; O2SAT 97–100
--- NOTE | 2019-09-20 00:21 | PCM.OPRPT ---
Problem List (1) 39 weeks gestation of Status: Acute Vaginal Delivery Maternal Presentation: Medically Indicated Induction Method of Induction: Pitocin, Amniotomy Medical Reason for Induction: - - AMA at 39 weeks Amniotic Membrane Rupture Type: Artificial Rupture of Membrane time: 1750 Amniotic Fluid Description: Clear Final DIMITRIS: 09/26/19 Gestational age: 39 Weeks and 1 Days Description of Procedure: Patient had precipitously delivered when property underwriter was called. Reports felt a movement with RN in the room and a head appearance, followed spontaneously by a the body. The infant was placed on the maternal abdomen by labor nurse and further attended by nursery personnel. The cord was doubly clamped and cut at approximately 30 seconds of life. Placenta delivered spontaneously in Ann mechanism. Upon my arrival, Pitocin IV started. Placenta appeared intact upon inspection. A right labial 1st degree laceration noted on inspection with good hemostasis and no pair needed. A left periurethral 1st degree was noted, repaired with a 2.[address] with one figure eight. Fundus firm and midline upon massage. EBL <100. Apgars 8/9. Sponge and needle counts correct x 2. Presentation: Vertex Placental Delivery Description: Spontaneous Placenta Disposition: [facility] Cord Vessel Description: 3 Vessels Cord Entanglement: None Drain: Garcia to straight drain Estimated Blood Loss: 100 Infant A gender: Male (1 minute): 8 (5 minute): 9 Episiotomy Description: None Laceration: Periurethral Extnsion/lac - 1st left periurethral and 1st right labial, 1st degree Medications given after delivery: IV Pitocin
--- NOTE | 2019-09-20 00:31 | DCINST_ITS ---
Discharge Diet: No Restrictions Discharge Activity: Return to Normal Activity, May not drive while taking narcotic pain medications., May Shower May resume sexual activity in: 4-6 weeks Additional Activity Instructions:: Nothing in the vagina for 4-6 weeks. You may return to work/school in 6 weeks. Call your doctor if your incision/area has: Continuous Slow Oozing, Sudden Increased Bleeding, Increased Pain/ Swelling, Increased Redness, Foul Smelling Discharge Additional Instructions: If you experience any of the following, contact your healthcare provider. * Bleeding that soaks a pad every hour for 2 hours * Fever 100.4 or higher * Unrelieved incision or abdominal pain * Swelling, redness, discharge or bleeding from your incision or episiotomy site * Your incision begins to separate * Problems urinating (including inability to urinate or burning while urinating). * Visual changes * Severe headache * Flu-like symptoms * Pain or redness in one of both of your breasts * Pain, warmth, tenderness or swelling in your legs, especially the calf area * Frequent nausea and vomiting * Symptoms of depression or anxiety If you experience any of the following, call 911 or go to the nearest Emergency Room. * Chest pain * Problems breathing * Seizure activity * Partial or complete paralysis of a body part, slurred speech, weakness or drooping of the face, or a sudden inability to walk or hold your balance Allergies/Adverse Reactions: Allergies No Known Allergies Allergy (Verified 09/19/19 13:49) reactions to nickel and bancaids Medications to take at Discharge Vit 87/Iron/Folic/Dha [Prenate Mini Softgel] 1 each PO DAILY 10/15/17 Aspirin [Aspir 81] 81 mg PO DAILY 09/16/19 Please Follow Up With: Felisa Hameed CNM When: Call to make an appointment with your CNM in 6 weeks. If any signs of depression to call immediately. Test Results: Test results from this visit will be discussed in further detail at your follow- up appointment, if applicable.
[2019-09-20] MEDS: Senna/Docusate Sodium 1 Tablet PO (06:42)
[2019-09-20] MEDS: Ibuprofen 600 MG Tablet PO ×3 (09:16→22:14)
[2019-09-20] MEDS: Acetaminophen 500 MG Tablet 1000 MG PO ×2 (10:46→18:33)
[2019-09-20] MEDS: Ondansetron ODT 4 MG Tablet PO (12:16)
--- NOTE | 2019-09-20 14:12 | PCM.PN.BLA ---
Progress Note S: Abdominal cramps while 12/03 and had a lot of nausea. 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
[2019-09-21] VITALS: BP 131/86; PULSE 86; RESP 16; TEMP 36.9
[2019-09-21 00:32] VITALS: BP 131/86; PULSE 86
[2019-09-21] MEDS: Acetaminophen 500 MG Tablet 1000 MG PO (03:37)
[2019-09-21 03:40] VITALS: BP 126/82; PULSE 82
[2019-09-21 04:00] VITALS: BP 126/82; PULSE 82; RESP 16; TEMP 36.7
[2019-09-21 08:53] VITALS: BP 128/72; PULSE 88
[2019-09-21] MEDS: Ibuprofen 600 MG Tablet PO (09:19)
[2019-09-21 10:00] VITALS: BP 128/72; PULSE 88; RESP 16; TEMP 36.8
--- NOTE | 2019-09-21 10:34 | PCM.PN.OB ---
Patient Problems: Active and Suspected Problems 39 weeks gestation of (Acute) Subjective: Feeling a lot better today. Reports cramping with , but tolerable. Denies nausea, being dizzy, and heavy bleeding. Objective: VSS. Fundus u/2, firm, midline. Lochia rubra light. son well. - Physical Exam Vitals/I&O's: Vital Signs Temp Pulse Resp BP Pulse Ox 98.1 F 88 16 128/72 H 98 09/21/19 04:00 09/21/19 08:53 09/21/19 04:00 09/21/19 08:53 09/20/19 21:00 Oxygen Delivery Method Room Air Weight: 97.522 kg Body Mass Index (BMI) 38.0 Intake and Output for Last 24 Hours 09/19/19 09/20/19 09/21/19 23:59 23:59 23:59 Intake Total 3490.06 / 3490.06 2000.00 / 1999.00 Output Total 1200 / 1200 1950 / 1950 Balance 2290.06 / 2290.06 50.00 / 50.00 General: Alert, Oriented x3, Cooperative HEENT: Atraumatic, PERRLA, EOMI, Normocephalic Neck: Supple, No JVD, Negative Carotid Bruits Lungs: Clear to auscultation, Normal air movement Cardiovascular: Regular rate, No murmurs Abdomen: Bowel Sounds Present, Soft, Non Tender, Passing Flatus Extremities: No edema, Capillary Refill Less than 3 Seconds Skin: No rashes, No breakdown Musculoskeletal: No Tenderness to Palpation of Joints or Extremities Neurological: Cranial nerves II-XII grossly intact Psych/Mental Status: Normal Affect, Appropriate Current Medications Acetaminophen (Tylenol) 1,000 mg PO Q8H PRN PRN PRN Reason: Pain Score 1-3/10 Last Admin: 09/21/19 03:37 Dose: 1,000 mg Documented by: Bisacodyl (Dulcolax) 10 mg RECTAL UD PRN PRN Reason: If no BM Dibucaine (Dibucaine) 1 applic TOPICAL TID PRN PRN; Protocol PRN Reason: Discomfort Hydrocortisone (Hytone) 1 applic TOPICAL TID PRN PRN; Protocol PRN Reason: Discomfort Ibuprofen (Motrin) 600 mg PO Q6H PRN PRN PRN Reason: Pain Score 1-3/10 Last Admin: 09/21/19 09:19 Dose: 600 mg Documented by: Methylergonovine Maleate (Methergine) 0.2 mg IM X1 PRN PRN Reason: Excess bleeding/uterine atony Ondansetron HCl (Zofran) 4 mg IV Q4H PRN PRN PRN Reason: Nausea Ondansetron HCl (Zofran Odt) 4 mg PO Q8H PRN PRN PRN Reason: NAUSEA/VOMITING Last Admin: 09/20/19 12:16 Dose: 4 mg Documented by: Oxycodone HCl (Oxyir) 5 - 10 mg PO Q4H PRN PRN PRN Reason: Pain Score 4-10/10 Senna/Docusate Sodium (Senokot-S, Martha-Colace) 1 - 2 tablet PO DAILY PRN PRN PRN Reason: Constipation Last Admin: 09/20/19 06:42 Dose: 2 tablet Documented by: Simethicone (Mylicon) 80 mg PO PCHS PRN PRN Reason: Indigestion/Stomach pain Last Admin: 09/20/19 20:29 Dose: 80 mg Documented by: Sodium Chloride () 5 - 15 ml IV UD PRN PRN Reason: SALINE FLUSH Throat Lozenges (Dermoplast (Sp)) 1 applic TOPICAL 4X/DAY PRN PRN; Protocol PRN Reason: RASH/TOPICAL IRRITATION Medical Necessity - Tobacco Use Smoking Status: Never smoker Assessment/Plan All Active Problems 39 weeks gestation of (Acute) A: Post vaginal delivery day #2 Normal involution and course well Cramping while continues, but well controlled with Motrin P: To continue Motrin and Tylenol as needed Dyad stable and ready for discharge
--- NOTE | 2019-09-21 14:29 | NURSING ---
[id number] Discharged to home with baby. Pt states she is eager to go home and see her daughter. States she is comfortable going home and caring for herself and her baby.
== END 2019-09-21 12:00 | disposition home or self-care (01) | DRG 807 ==
PROVIDERS: Admitting Provider Obstetrics & Gynecology; Referring Provider Obstetrics & Gynecology; Visit Provider Obstetrics & Gynecology
DX: O62.3 Precipitate labor (principal); Z37.0 Single live birth; Z3A.39 39 weeks gestation of pregnancy; O70.0 First degree perineal laceration during delivery
CPT/HCPCS: 59025; 59050; 80048; 85025; 85384; 85461; 85610; 85730; 86850; 86900; 86901; 90384; 99218; J7120; G0378; J2790

== ENCOUNTER → 2021-12-22 | Outpatient (CLI) | payer OTHER, SELFPAY ==
[2021-12-22 16:58] LABS: Thyroid Stim Hormone (TSH) 1.29 uIU/mL (0.358-3.74)
[2021-12-29 12:21] LABS: HPV Reflexed? NOT INDICATED
== END | disposition home or self-care (01) ==
LOC: WOBLAB 15:26
PROVIDERS: Visit Provider Obstetrics & Gynecology
DX: Z13.29 Encounter for screening for other suspected endocrine disorder (principal); Z12.4 Encounter for screening for malignant neoplasm of cervix
CPT/HCPCS: 36415; 84443; 88175; G0145